=== PATIENT | male | born 1960 | race Caucasian/White ===

== ENCOUNTER 2021-07-06 10:08 | Day surgery (SDC) | payer OTHER ==
[~2021-07-06] VITALS: Ht 162.6 cm; Wt 75.7 kg
[2021-07-06] MEDS ORDERED: fentaNYL citrate 0.05 MG/ML VIAL ONE (10:44)
[2021-07-06] MEDS ORDERED: LIDOCAINE 2% 100 MG/5 ML UJET TP ONE (10:45)
[2021-07-06] MEDS ORDERED: fentaNYL citrate 0.05 MG/ML VIAL IVP ONE (13:45)
== END 2021-07-06 14:30 | disposition home or self-care (01) ==
LOC: MDS 10:08 → MMU 10:09 → MDS 14:30
PROVIDERS: ATTEND Internal Medicine Gastroenterology
DX: Z12.11 Encounter for screening for malignant neoplasm of colon (principal); K57.30 Diverticulosis of large intestine without perforation or abscess without bleeding; I10 Essential (primary) hypertension; E78.5 Hyperlipidemia, unspecified; Z87.442 Personal history of urinary calculi; Z79.899 Other long term (current) drug therapy
CPT/HCPCS: 45378; J3010